=== PATIENT | male | born 1970 | race Caucasian/White ===

== ENCOUNTER 2018-03-09 15:28 | Inpatient (IN) | payer MEDICARE, MEDICAID ==
[~2018-03-09] VITALS: Ht 180.3 cm; Wt 106.0 kg
[~2018-03-09 15:28] MED LIST: ARIP10TA15 PO; ATOR20TA PO; BENZ0.5T38 PO; CETI-1 PO; DULO-31 PO; FOLI-43 PO; HYDR-3686 PO; INSU100I25 SQ; IPRA3AMP31 IH; IPRA4AER IH; METF-437 PO; MULT-785 PO; NALT50TA PO; NICO-687 TD; NOR5T PO; NOVLG SQ; OMEP-84 PO; PRAZ1CAP5 PO; PREG100C24 PO; PROP10TA10 PO; SITA100T15 PO; SUCR1ORA2 PO; TIZA4CAP PO; VAL5T PO; VALS40TA2 PO
[2018-03-09] MEDS ORDERED: ringers solution, lacted 1,000 ML IV ONE ×2 (15:40→16:15)
[2018-03-09] MEDS ORDERED: dextrose 50%-water 50ml dispensing syringe IV ONE (16:05)
[2018-03-09] MEDS ORDERED: Dextrose 10%-water IV solution 1,000 ML IV ONE (16:05)
[2018-03-09 16:06] LABS: BASOPHILS # (AUTO) 0.1 X10'3 (0-0.2); BASOPHILS % (AUTO) 0.6 % (0-1); EOSINOPHILS # (AUTO) 0.2 X10'3 (0-0.9); EOSINOPHILS % (AUTO) 1.3 % (0-6); LYMPHOCYTES # (AUTO) 1.7 X10'3 (1.1-4.8); LYMPHOCYTES % (AUTO) 13.8 % (21-51); MEAN CORPUSCULAR HEMOGLOBIN 32.3 PG (27.0-31.0); MEAN CORPUSCULAR VOLUME 94.8 FL (78-98); MEAN PLATELET VOLUME 7.4 FL (7.4-10.4); MONOCYTES # (AUTO) 0.6 X10'3 (0-0.9); MONOCYTES % (AUTO) 4.5 % (2-12); NEUTROPHILS # (AUTO) 9.8 X10'3 (1.8-7.7); NEUTROPHILS % (AUTO) 79.8 % (42-75); PLATELET COUNT 216 X10'3 (140-440); RED BLOOD COUNT 4.33 X10'6 (4.70-6.10); RED CELL DISTRIBUTION WIDTH 14.7 % (11.5-14.5); WHITE BLOOD COUNT 12.3 X10'3 (4.5-11.0)
[2018-03-09 16:18] LABS: ALANINE AMINOTRANSFERASE 54 U/L (12-78); ALBUMIN 2.7 G/DL (3.4-5.0); ALBUMIN/GLOBULIN RATIO 0.6 (1.1-1.5); ALKALINE PHOSPHATASE 116 IU/L (46-116); ANION GAP 17 (8-16); ASPARTATE AMINO TRANSFERASE 184 U/L (10-37); BILIRUBIN,TOTAL 0.3 MG/DL (0.1-1.0); BLOOD UREA NITROGEN 17 MG/DL (7-18); BUN/CREATININE RATIO 12.8 (5.4-32.0); CALCIUM 9.2 MG/DL (8.5-10.1); CHLORIDE 102 MMOL/L (99-107); CREATININE 1.33 MG/DL (0.60-1.10); GLUCOSE 61 MG/DL (70-104); SODIUM 141 MMOL/L (135-145); TOTAL PROTEIN 6.9 G/DL (6.4-8.2); eGFR 57 ML/MIN
[2018-03-09] MEDS ORDERED: normal saline 1000ML IV soln IV ONE (16:25)
[2018-03-09 16:28] LABS: ETHANOL 0.137 GM/DL (0.0-0.010); INR 1.1 INR; PARTIAL THROMBOPLASTIN TIME 31 SECONDS (22-32); PROTHROMBIN TIME 11.5 SECONDS (9.0-12.0)
[2018-03-09 16:32] LABS: TROPONIN I 0.81 NG/ML (0.0-0.05)
[2018-03-09] MEDS ORDERED: potassium Cl 40 mEq/NS 500ml IV ONE (16:35)
[2018-03-09 16:59] LABS: LACTIC SEPSIS 4.4 MMOL/L (0.4-2.0)
[2018-03-09 17:01] LABS: CREATINE KINASE 8657 U/L (39-308)
[2018-03-09] MEDS ORDERED: levoFLOXACIN-Levaquin 750MG/D5 150 ML IV ONE (17:05)
[2018-03-09] MEDS ORDERED: Potassium Cl 40 MEQ in NS 500 ML IV ONE (17:15)
[2018-03-09 17:49] LABS: CLARITY,URINE SLIGHTLY CLOUDY (Clear); COLOR,URINE YELLOW (Yellow); GLUCOSE, URINE >=1000 mg/dl (Neg); KETONES,URINE NEGATIVE (Neg); LEUKOCYTE ESTERASE ,URINE NEGATIVE (Neg); NITRITES, URINE NEGATIVE (Neg); OCCULT BLOOD,URINE LARGE (Neg); PROTEIN,URINE 100 mg/dl (Neg); UROBILINOGEN,URINE 0.2 E.U/dL (0.2-1.0)
[2018-03-09 17:50] LABS: UA COLLECTION TYPE FOLEY CATH
[2018-03-09 17:55] LABS: URINE AMPHETAMINE SCREEN NEGATIVE (Neg); URINE BARBITUATE SCREEN NEGATIVE (Neg); URINE BENZODIAZEPINES SCREEN POSITIVE (Neg); URINE CANNABINOID SCREEN POSITIVE (Neg); URINE COCAINE SCREEN NEGATIVE (Neg); URINE METHADONE SCREEN NEGATIVE (Neg); URINE OPIATE SCREEN POSITIVE (Neg); URINE PHENCYCLIDINE SCREEN NEGATIVE (Neg)
[2018-03-09] MEDS ORDERED: sodium phosphate inj. 30 MMOL in dextrose 5%-water 250 ML IV PRN (18:00)
[2018-03-09] MEDS ORDERED: sodium phosphate inj. 15 MMOL in dextrose 5%-water 150 ML IV PRN (18:00)
[2018-03-09] MEDS ORDERED: potassium phosphate inj 30 MMOL in normal saline 500ml IV soln 490 ML IV ONE (18:05)
[2018-03-09 18:16] LABS: AMORPHOUS URATES 2+; BACTERIA,URINE NONE SEEN /HPF (Neg); MUCUS STRANDS NONE SEEN /LPF (Neg); RBC,URINE NONE SEEN /HPF (0-2); RENAL CELLS, URINE FEW /HPF; SQUAMOUS EPITHELIAL CELL,UR NONE SEEN /LPF (FEW); TRANSITIONAL EPI CELLS,URINE FEW /HPF; WBC,URINE 0-4 /HPF (0-4)
[2018-03-09] MEDS ORDERED: dextrose 5%-1/2 normal saline 1,000 ML IV SCH (19:02)
[2018-03-09] MEDS ORDERED: HYDROcodone/acetaminophen 5mg/325mg tablet PO PRN (19:05)
[2018-03-09] MEDS ORDERED: magnesium hydroxide 30ml (MOM) UD suspension PO PRN (19:05)
[2018-03-09] MEDS ORDERED: ondansetron/PF 4mg/2ml inj IV PRN (19:05)
[2018-03-09] MEDS ORDERED: morphine 2 MG/ML inj. syringe IV PRN (19:05)
[2018-03-09] MEDS ORDERED: mag hydrox/Alum hydrox/simeth 30ml oral suspension PO PRN (19:05)
[2018-03-09] MEDS ORDERED: acetaminophen 325mg tablet PO PRN (19:05)
[2018-03-09] MEDS ORDERED: glucagon, human recombinant 1mg kit SUBCUT PRN (19:10)
[2018-03-09] MEDS ORDERED: dextrose ORAL solution 15 GM/59 ML bottle PO PRN ×2 (19:10)
[2018-03-09] MEDS ORDERED: dextrose 50%-water 50ml dispensing syringe IV PRN ×2 (19:10)
[2018-03-09] MEDS ORDERED: MESSAGE TO PHARMACY PO ONE (19:10)
[2018-03-09] MEDS ORDERED: ASPI-778 (19:11)
[2018-03-09] MEDS ORDERED: ZOLP10TA5 PO (19:11)
[2018-03-09] MEDS ORDERED: PER10325T PO (19:11)
[2018-03-09] MEDS ORDERED: FLUT1DIS4 INH (19:11)
[2018-03-09] MEDS ORDERED: enoxaparin 100mg/ml syringe SUBCUT ONE (19:15)
[2018-03-09] MEDS: insulin glargine (Lantus) pen - multi-dose SQ SCH (21:00)
[2018-03-09 22:00] VITALS: BP 139/88
[2018-03-09] MEDS: metoprolol tartrate 25mg tablet PO SCH (22:26)
[2018-03-09] MEDS: HYDROcodone/acetaminophen 10/325mg tab PO PRN (22:38)
[2018-03-09 22:47] LABS: HEMOGLOBIN A1C 9.3 % (4.5-6.2)
[2018-03-10 02:00] VITALS: BP 147/73
[2018-03-10] MEDS: HYDROcodone/acetaminophen 10/325mg tab PO PRN ×6 (02:44→22:19)
[2018-03-10 03:51] LABS: BASOPHILS # (AUTO) 0.1 X10'3 (0-0.2); BASOPHILS % (AUTO) 0.5 % (0-1); EOSINOPHILS # (AUTO) 0.1 X10'3 (0-0.9); EOSINOPHILS % (AUTO) 0.5 % (0-6); HEMATOCRIT 38.8 % (42.0-52.0); HEMOGLOBIN 13.1 g/dl (14.0-17.9); LYMPHOCYTES # (AUTO) 2.3 X10'3 (1.1-4.8); LYMPHOCYTES % (AUTO) 19.7 % (21-51); MEAN CORPUSCULAR HGB CONC 33.8 % (33.0-36.5); MEAN CORPUSCULAR VOLUME 94.6 FL (78-98); MEAN PLATELET VOLUME 7.7 FL (7.4-10.4); MONOCYTES # (AUTO) 0.6 X10'3 (0-0.9); MONOCYTES % (AUTO) 5.2 % (2-12); NEUTROPHILS # (AUTO) 8.6 X10'3 (1.8-7.7); NEUTROPHILS % (AUTO) 74.1 % (42-75); PLATELET COUNT 166 X10'3 (140-440); RED CELL DISTRIBUTION WIDTH 14.7 % (11.5-14.5); WHITE BLOOD COUNT 11.5 X10'3 (4.5-11.0)
[2018-03-10] MEDS: normal saline 1000ml 1,000 ML IV SCH ×3 (04:03→23:32)
[2018-03-10 04:05] LABS: ALBUMIN 2.5 G/DL (3.4-5.0); ANION GAP 11 (8-16); BLOOD UREA NITROGEN 16 MG/DL (7-18); BUN/CREATININE RATIO 11.1 (5.4-32.0); CALCIUM 8.1 MG/DL (8.5-10.1); CHLORIDE 103 MMOL/L (99-107); CHOL/HDL RATIO 2.4 (0.00-4.99); CHOLESTEROL 131 MG/DL (0-200); CREATININE 1.44 MG/DL (0.60-1.10); GLUCOSE 203 MG/DL (70-104); HDL CHOLESTEROL 55 MG/DL (35-60); LDL CHOLESTEROL 52 MG/DL (50-100); POTASSIUM 4.4 MMOL/L (3.5-5.1); SODIUM 139 MMOL/L (135-145); TOTAL CARBON DIOXIDE 25.3 MMOL/L (24-32); TRIGLYCERIDES 223 MG/DL (20-135); eGFR 52 ML/MIN
[2018-03-10 04:13] LABS: CREATINE KINASE 6037 U/L (39-308)
[2018-03-10 04:15] LABS: TROPONIN I 0.68 NG/ML (0.0-0.05)
[2018-03-10 06:00] VITALS: BP 144/79
[2018-03-10] MEDS: aspirin 81mg tablet.DR PO SCH (07:49)
[2018-03-10] MEDS: metoprolol tartrate 25mg tablet PO SCH ×2 (07:49→21:54)
[2018-03-10] MEDS ORDERED: enoxaparin 40mg/0.4ml syringe SUBCUT SCH (08:00)
[2018-03-10] MEDS ORDERED: thiamine inj. 100 MG in normal saline 100ml IV soln 100 ML IV ONE (09:15)
[2018-03-10] MEDS ORDERED: haloperidol lactate 5mg/ml inj IM PRN (09:15)
[2018-03-10] MEDS ORDERED: haloperidol 5mg tablet PO PRN (09:15)
[2018-03-10] MEDS ORDERED: LURA80TA3 PO (09:44)
[2018-03-10] MEDS ORDERED: MELO-102 PO (09:45)
[2018-03-10] MEDS ORDERED: CANA300T PO (09:46)
[2018-03-10] MEDS ORDERED: ALPR1TAB7 PO (09:47)
[2018-03-10] MEDS ORDERED: MORP-64 PO (09:48)
[2018-03-10] MEDS: pantoprazole 40 MG vial IV SCH (10:46)
[2018-03-10 11:00] VITALS: BP 152/85
[2018-03-10] MEDS: insulin Lispro (HumaLOG) vial - multi-dose SQ SCH ×2 (13:16→19:14)
[2018-03-10 15:00] VITALS: BP 139/74
[2018-03-10] MEDS ORDERED: DIAZ10TA4 PO (16:30)
[2018-03-10] MEDS ORDERED: INSU100V12 SQ (16:31)
[2018-03-10] MEDS ORDERED: INSU100V13 SQ (16:31)
[2018-03-10] MEDS ORDERED: NALT50TA PO (16:32)
[2018-03-10] MEDS ORDERED: non-formulary drug (Ipratropium/Albuterol Sulfate (Combivent Respimat Inhal Spray) 1 PUFFS IH SCH (17:00)
[2018-03-10] MEDS ORDERED: non-formulary drug (Omeprazole* (Prilosec*) 20 MG) PO SCH (17:00)
[2018-03-10] MEDS ORDERED: ipratropium/albuterol 3ml nebule IH PRN (17:00)
[2018-03-10] MEDS ORDERED: metoprolol tartrate 1mg/ml inj IV PRN (17:05)
[2018-03-10] MEDS ORDERED: regadenoson 0.4mg/5ml syringe IV PRN (17:05)
[2018-03-10] MEDS ORDERED: aminophylline 250mg/10ml inj. IV PRN (17:05)
[2018-03-10] MEDS ORDERED: nitroGLYCERIN 0.4mg SUBLingual tab SL PRN (17:05)
[2018-03-10] MEDS: levoFLOXACIN 500mg tablet PO SCH (17:47)
[2018-03-10] MEDS ORDERED: albuterol 2.5 MG/3 ML nebule NEB SCH (19:00)
[2018-03-10 19:10] VITALS: BP 152/92
[2018-03-10] MEDS: ipratropium/albuterol 3ml nebule IH SCH (20:00)
[2018-03-10] MEDS ORDERED: enoxaparin 100mg/ml syringe SUBCUT SCH (20:00)
[2018-03-10] MEDS ORDERED: non-formulary drug (Fluticasone/Salmeterol (Advair 250-50 Diskus) 1 PUFFS) INH SCH (20:00)
[2018-03-10] MEDS ORDERED: PREGABALIN 200 MG PO SCH (21:00)
[2018-03-10] MEDS ORDERED: non-formulary drug (Lurasidone HCl (Latuda) 1 TAB) PO SCH (21:00)
[2018-03-10] MEDS: propranolol 10mg tablet PO SCH (21:54)
[2018-03-10] MEDS: lurasidone 20mg tablet PO SCH (21:54)
[2018-03-10] MEDS: atorvastatin 20mg tablet PO SCH (21:54)
[2018-03-10] MEDS: insulin glargine (Lantus) pen - multi-dose SQ SCH (22:07)
[2018-03-10] MEDS: LORazepam 1 MG tablet PO PRN (22:14)
[2018-03-10] MEDS: pregabalin 25mg capsule PO SCH (22:14)
[2018-03-10 23:00] VITALS: BP 143/87
[2018-03-11] VITALS (12 sets, daily range): BP systolic 124–155; BP diastolic 64–97
[2018-03-11] MEDS: LORazepam 1 MG tablet PO PRN ×5 (02:52→23:35)
[2018-03-11] MEDS: HYDROcodone/acetaminophen 10/325mg tab PO PRN ×4 (02:52→22:08)
[2018-03-11] MEDS: BUDESONIDE 0.25 MG/2 ML AMPUL.NEB IH SCH ×3 (03:43→20:15)
[2018-03-11 05:01] LABS: BASOPHILS % (AUTO) 0.5 % (0-1); EOSINOPHILS # (AUTO) 0.2 X10'3 (0-0.9); EOSINOPHILS % (AUTO) 3.5 % (0-6); HEMATOCRIT 32.4 % (42.0-52.0); LYMPHOCYTES # (AUTO) 1.8 X10'3 (1.1-4.8); LYMPHOCYTES % (AUTO) 30.8 % (21-51); MEAN CORPUSCULAR HEMOGLOBIN 32.1 PG (27.0-31.0); MEAN CORPUSCULAR HGB CONC 34.1 % (33.0-36.5); MEAN CORPUSCULAR VOLUME 94.3 FL (78-98); MONOCYTES # (AUTO) 0.3 X10'3 (0-0.9); MONOCYTES % (AUTO) 5.5 % (2-12); NEUTROPHILS # (AUTO) 3.5 X10'3 (1.8-7.7); NEUTROPHILS % (AUTO) 59.7 % (42-75); PLATELET COUNT 116 X10'3 (140-440); RED BLOOD COUNT 3.44 X10'6 (4.70-6.10); RED CELL DISTRIBUTION WIDTH 14.6 % (11.5-14.5); WHITE BLOOD COUNT 5.9 X10'3 (4.5-11.0)
[2018-03-11 05:16] LABS: ALBUMIN 2.2 G/DL (3.4-5.0); ANION GAP 9 (8-16); BLOOD UREA NITROGEN 13 MG/DL (7-18); CALCIUM 7.7 MG/DL (8.5-10.1); CHLORIDE 106 MMOL/L (99-107); GLUCOSE 130 MG/DL (70-104); SODIUM 141 MMOL/L (135-145); TOTAL CARBON DIOXIDE 26.1 MMOL/L (24-32); eGFR 80 ML/MIN
[2018-03-11 05:17] LABS: CREATINE KINASE 2909 U/L (39-308)
[2018-03-11] MEDS: pantoprazole 40mg Tablet.DR PO SCH ×2 (07:00→17:00)
[2018-03-11] MEDS: folic acid 1mg tablet PO SCH ×2 (07:04)
[2018-03-11] MEDS: aspirin 81mg tablet.DR PO SCH (07:04)
[2018-03-11] MEDS: enoxaparin 40mg/0.4ml syringe SUBCUT SCH (07:05)
[2018-03-11] MEDS: thiamine 100mg tablet PO SCH (07:05)
[2018-03-11] MEDS: multivitamins, therapeutics tablet PO SCH ×2 (07:05)
[2018-03-11] MEDS: pregabalin 25mg capsule PO SCH ×3 (07:05→22:03)
[2018-03-11] MEDS: ALPRAZolam 0.5mg tablet PO SCH (07:06)
[2018-03-11] MEDS: ipratropium/albuterol 3ml nebule IH SCH ×4 (07:09→20:15)
[2018-03-11] MEDS: propranolol 10mg tablet PO SCH (07:54)
[2018-03-11] MEDS: pantoprazole 40 MG vial IV SCH (07:56)
[2018-03-11] MEDS ORDERED: non-formulary drug (Alprazolam 1 TAB) PO SCH (08:00)
[2018-03-11] MEDS: amLODIPine 5mg tablet PO SCH (08:01)
[2018-03-11] MEDS: metoprolol tartrate 25mg tablet PO SCH ×2 (08:02→19:29)
[2018-03-11] MEDS: insulin Lispro (HumaLOG) vial - multi-dose SQ SCH ×2 (08:08→12:58)
[2018-03-11] MEDS: normal saline 1000ml 1,000 ML IV SCH ×3 (10:00→19:43)
[2018-03-11] MEDS ORDERED: regadenoson 0.4mg/5ml syringe IV ONE (11:12)
[2018-03-11] MEDS: levoFLOXACIN 500mg tablet PO SCH (12:42)
[2018-03-11] MEDS: morphine 2 MG/ML inj. syringe IV PRN (19:35)
[2018-03-11] MEDS ORDERED: propranolol 40mg tablet PO SCH (20:00)
[2018-03-11] MEDS: insulin glargine (Lantus) pen - multi-dose SQ SCH (21:49)
[2018-03-11] MEDS: lurasidone 20mg tablet PO SCH (21:59)
[2018-03-11] MEDS: atorvastatin 20mg tablet PO SCH (22:04)
[2018-03-12] VITALS: BP 162/96
[2018-03-12] MEDS: HYDROcodone/acetaminophen 10/325mg tab PO PRN ×3 (05:38→19:31)
[2018-03-12 06:09] LABS: BASOPHILS % (AUTO) 0.3 % (0-1); EOSINOPHILS # (AUTO) 0.2 X10'3 (0-0.9); EOSINOPHILS % (AUTO) 2.8 % (0-6); HEMATOCRIT 35.2 % (42.0-52.0); HEMOGLOBIN 12.1 g/dl (14.0-17.9); LYMPHOCYTES # (AUTO) 1.8 X10'3 (1.1-4.8); LYMPHOCYTES % (AUTO) 31.2 % (21-51); MEAN CORPUSCULAR HEMOGLOBIN 32.7 PG (27.0-31.0); MEAN CORPUSCULAR HGB CONC 34.5 % (33.0-36.5); MEAN CORPUSCULAR VOLUME 94.9 FL (78-98); MEAN PLATELET VOLUME 7.5 FL (7.4-10.4); MONOCYTES # (AUTO) 0.4 X10'3 (0-0.9); MONOCYTES % (AUTO) 6.3 % (2-12); NEUTROPHILS # (AUTO) 3.5 X10'3 (1.8-7.7); NEUTROPHILS % (AUTO) 59.4 % (42-75); PLATELET COUNT 116 X10'3 (140-440); RED BLOOD COUNT 3.71 X10'6 (4.70-6.10); RED CELL DISTRIBUTION WIDTH 14.3 % (11.5-14.5); WHITE BLOOD COUNT 5.9 X10'3 (4.5-11.0)
[2018-03-12 06:41] LABS: ALBUMIN 2.5 G/DL (3.4-5.0); ANION GAP 9 (8-16); BLOOD UREA NITROGEN 13 MG/DL (7-18); BUN/CREATININE RATIO 12.7 (5.4-32.0); CALCIUM 8.2 MG/DL (8.5-10.1); CHLORIDE 101 MMOL/L (99-107); CREATININE 1.02 MG/DL (0.60-1.10); GLUCOSE 197 MG/DL (70-104); POTASSIUM 4.5 MMOL/L (3.5-5.1); SODIUM 136 MMOL/L (135-145); TOTAL CARBON DIOXIDE 26.3 MMOL/L (24-32); eGFR 78 ML/MIN
[2018-03-12 06:43] LABS: CREATINE KINASE 2714 U/L (39-308)
[2018-03-12] MEDS: ipratropium/albuterol 3ml nebule IH SCH ×4 (07:01→19:48)
[2018-03-12] MEDS: BUDESONIDE 0.25 MG/2 ML AMPUL.NEB IH SCH ×2 (07:02→19:48)
[2018-03-12] MEDS: pantoprazole 40mg Tablet.DR PO SCH ×2 (07:38→17:01)
[2018-03-12] MEDS: amLODIPine 5mg tablet PO SCH (07:39)
[2018-03-12] MEDS: folic acid 1mg tablet PO SCH ×2 (07:39→08:00)
[2018-03-12] MEDS: aspirin 81mg tablet.DR PO SCH (07:39)
[2018-03-12] MEDS: metoprolol tartrate 25mg tablet PO SCH ×2 (07:39→19:28)
[2018-03-12] MEDS: thiamine 100mg tablet PO SCH (07:39)
[2018-03-12] MEDS: lactobacillus rhamnosus 10,000 MMU CELLS/CAPSULE PO SCH ×2 (07:39→19:28)
[2018-03-12] MEDS: ALPRAZolam 0.5mg tablet PO SCH (07:39)
[2018-03-12 07:40] VITALS: BP 156/103
[2018-03-12] MEDS: multivitamins, therapeutics tablet PO SCH ×2 (07:40→08:00)
[2018-03-12] MEDS: enoxaparin 40mg/0.4ml syringe SUBCUT SCH (07:41)
[2018-03-12] MEDS: pantoprazole 40 MG vial IV SCH (08:00)
[2018-03-12] MEDS: insulin Lispro (HumaLOG) vial - multi-dose SQ SCH ×3 (08:42→18:47)
[2018-03-12] MEDS: morphine 2 MG/ML inj. syringe IV PRN ×3 (08:44→21:26)
[2018-03-12] MEDS: LORazepam 2 mg/ml vial IV PRN ×2 (08:45→17:01)
[2018-03-12] MEDS: pregabalin 75mg capsule PO SCH ×3 (09:46→21:24)
[2018-03-12] MEDS: pregabalin 25mg capsule PO SCH ×3 (09:47→21:24)
[2018-03-12] MEDS: levoFLOXACIN 500mg tablet PO SCH (11:07)
[2018-03-12] MEDS: normal saline 1000ml 1,000 ML IV SCH ×3 (11:25→23:26)
[2018-03-12 11:42] VITALS: BP 138/84
[2018-03-12 19:00] VITALS: BP 160/96
[2018-03-12] MEDS: LORazepam 1 MG tablet PO PRN ×2 (19:28→21:25)
[2018-03-12] MEDS: lurasidone 20mg tablet PO SCH (21:17)
[2018-03-12] MEDS: atorvastatin 20mg tablet PO SCH (21:25)
[2018-03-12] MEDS: insulin glargine (Lantus) pen - multi-dose SQ SCH (21:29)
[2018-03-13] VITALS: BP 165/91
[2018-03-13] MEDS: HYDROcodone/acetaminophen 10/325mg tab PO PRN ×4 (00:45→16:19)
[2018-03-13] MEDS: LORazepam 1 MG tablet PO PRN ×3 (00:45→19:17)
[2018-03-13] MEDS: morphine 2 MG/ML inj. syringe IV PRN ×4 (02:45→19:17)
[2018-03-13] MEDS: normal saline 1000ml 1,000 ML IV SCH ×3 (05:02→23:59)
[2018-03-13 05:51] LABS: BASOPHILS % (AUTO) 0.2 % (0-1); EOSINOPHILS # (AUTO) 0.2 X10'3 (0-0.9); HEMATOCRIT 35.9 % (42.0-52.0); HEMOGLOBIN 12.4 g/dl (14.0-17.9); LYMPHOCYTES # (AUTO) 1.7 X10'3 (1.1-4.8); LYMPHOCYTES % (AUTO) 30.1 % (21-51); MEAN CORPUSCULAR HEMOGLOBIN 32.4 PG (27.0-31.0); MEAN CORPUSCULAR HGB CONC 34.6 % (33.0-36.5); MEAN CORPUSCULAR VOLUME 93.7 FL (78-98); MEAN PLATELET VOLUME 7.7 FL (7.4-10.4); MONOCYTES # (AUTO) 0.4 X10'3 (0-0.9); MONOCYTES % (AUTO) 6.5 % (2-12); NEUTROPHILS # (AUTO) 3.4 X10'3 (1.8-7.7); NEUTROPHILS % (AUTO) 60.2 % (42-75); PLATELET COUNT 114 X10'3 (140-440); RED BLOOD COUNT 3.84 X10'6 (4.70-6.10); RED CELL DISTRIBUTION WIDTH 14.4 % (11.5-14.5); WHITE BLOOD COUNT 5.6 X10'3 (4.5-11.0)
[2018-03-13 06:43] LABS: ALBUMIN 2.7 G/DL (3.4-5.0); ANION GAP 13 (8-16); BLOOD UREA NITROGEN 10 MG/DL (7-18); BUN/CREATININE RATIO 9.5 (5.4-32.0); CALCIUM 8.4 MG/DL (8.5-10.1); CHLORIDE 102 MMOL/L (99-107); CREATININE 1.05 MG/DL (0.60-1.10); GLUCOSE 203 MG/DL (70-104); POTASSIUM 4.4 MMOL/L (3.5-5.1); SODIUM 140 MMOL/L (135-145); TOTAL CARBON DIOXIDE 25.1 MMOL/L (24-32); eGFR 75 ML/MIN
[2018-03-13 06:51] LABS: CREATINE KINASE 2530 U/L (39-308)
[2018-03-13] MEDS: BUDESONIDE 0.25 MG/2 ML AMPUL.NEB IH SCH ×2 (07:33→19:34)
[2018-03-13] MEDS: ipratropium/albuterol 3ml nebule IH SCH ×4 (07:33→19:35)
[2018-03-13] MEDS: metoprolol tartrate 25mg tablet PO SCH ×2 (07:39→20:47)
[2018-03-13] MEDS: lactobacillus rhamnosus 10,000 MMU CELLS/CAPSULE PO SCH ×2 (07:39→20:47)
[2018-03-13] MEDS: ALPRAZolam 0.5mg tablet PO SCH (07:39)
[2018-03-13] MEDS: amLODIPine 5mg tablet PO SCH (07:39)
[2018-03-13] MEDS: folic acid 1mg tablet PO SCH ×2 (07:40→07:44)
[2018-03-13] MEDS: pregabalin 25mg capsule PO SCH ×3 (07:40→20:47)
[2018-03-13] MEDS: pregabalin 75mg capsule PO SCH ×3 (07:41→20:47)
[2018-03-13] MEDS: thiamine 100mg tablet PO SCH (07:41)
[2018-03-13] MEDS: pantoprazole 40mg Tablet.DR PO SCH ×2 (07:41→16:19)
[2018-03-13] MEDS: multivitamins, therapeutics tablet PO SCH ×2 (07:42→07:45)
[2018-03-13] MEDS: enoxaparin 40mg/0.4ml syringe SUBCUT SCH (07:42)
[2018-03-13] MEDS: aspirin 81mg tablet.DR PO SCH (07:42)
[2018-03-13 08:00] VITALS: BP 157/108
[2018-03-13] MEDS: insulin Lispro (HumaLOG) vial - multi-dose SQ SCH ×3 (08:02→19:03)
[2018-03-13] MEDS: levoFLOXACIN 500mg tablet PO SCH (10:19)
[2018-03-13 11:00] VITALS: BP 126/93
[2018-03-13] MEDS ORDERED: LORazepam 1 MG tablet PO ONE (13:15)
[2018-03-13 19:00] VITALS: BP 142/82
[2018-03-13] MEDS: atorvastatin 20mg tablet PO SCH (20:47)
[2018-03-13] MEDS: lurasidone 20mg tablet PO SCH (20:48)
[2018-03-13] MEDS: insulin glargine (Lantus) pen - multi-dose SQ SCH (21:02)
[2018-03-14] VITALS: BP 144/76
[2018-03-14] MEDS: LORazepam 1 MG tablet PO PRN ×2 (00:06→05:44)
[2018-03-14] MEDS: morphine 2 MG/ML inj. syringe IV PRN ×2 (00:07→05:45)
[2018-03-14] MEDS: HYDROcodone/acetaminophen 10/325mg tab PO PRN ×2 (03:33→08:22)
[2018-03-14 06:04] LABS: BASOPHILS % (AUTO) 0.1 % (0-1); EOSINOPHILS # (AUTO) 0.2 X10'3 (0-0.9); EOSINOPHILS % (AUTO) 2.6 % (0-6); HEMATOCRIT 36.5 % (42.0-52.0); HEMOGLOBIN 12.4 g/dl (14.0-17.9); LYMPHOCYTES % (AUTO) 26.1 % (21-51); MEAN CORPUSCULAR HEMOGLOBIN 32.1 PG (27.0-31.0); MEAN CORPUSCULAR HGB CONC 33.9 % (33.0-36.5); MEAN CORPUSCULAR VOLUME 94.7 FL (78-98); MEAN PLATELET VOLUME 7.5 FL (7.4-10.4); MONOCYTES # (AUTO) 0.7 X10'3 (0-0.9); NEUTROPHILS # (AUTO) 4.8 X10'3 (1.8-7.7); NEUTROPHILS % (AUTO) 62.2 % (42-75); PLATELET COUNT 125 X10'3 (140-440); RED BLOOD COUNT 3.86 X10'6 (4.70-6.10); RED CELL DISTRIBUTION WIDTH 14.9 % (11.5-14.5); WHITE BLOOD COUNT 7.7 X10'3 (4.5-11.0)
[2018-03-14 06:29] LABS: ALBUMIN 2.8 G/DL (3.4-5.0); ANION GAP 12 (8-16); BLOOD UREA NITROGEN 10 MG/DL (7-18); CALCIUM 8.6 MG/DL (8.5-10.1); CHLORIDE 102 MMOL/L (99-107); CREATININE 1.11 MG/DL (0.60-1.10); GLUCOSE 212 MG/DL (70-104); POTASSIUM 4.5 MMOL/L (3.5-5.1); SODIUM 139 MMOL/L (135-145); TOTAL CARBON DIOXIDE 25.4 MMOL/L (24-32); eGFR 71 ML/MIN
[2018-03-14 06:32] LABS: CREATINE KINASE 2117 U/L (39-308)
[2018-03-14 07:04] VITALS: BP 168/91
[2018-03-14] MEDS: BUDESONIDE 0.25 MG/2 ML AMPUL.NEB IH SCH (07:13)
[2018-03-14] MEDS: ipratropium/albuterol 3ml nebule IH SCH ×2 (07:13→11:06)
[2018-03-14] MEDS: folic acid 1mg tablet PO SCH ×2 (08:00→08:12)
[2018-03-14] MEDS: multivitamins, therapeutics tablet PO SCH ×2 (08:00→08:12)
[2018-03-14] MEDS: pregabalin 25mg capsule PO SCH (08:11)
[2018-03-14] MEDS: pantoprazole 40mg Tablet.DR PO SCH (08:12)
[2018-03-14] MEDS: pregabalin 75mg capsule PO SCH (08:12)
[2018-03-14] MEDS: lactobacillus rhamnosus 10,000 MMU CELLS/CAPSULE PO SCH (08:12)
[2018-03-14] MEDS: thiamine 100mg tablet PO SCH (08:12)
[2018-03-14] MEDS: ALPRAZolam 0.5mg tablet PO SCH (08:12)
[2018-03-14] MEDS: metoprolol tartrate 25mg tablet PO SCH (08:12)
[2018-03-14] MEDS: enoxaparin 40mg/0.4ml syringe SUBCUT SCH (08:13)
[2018-03-14] MEDS: aspirin 81mg tablet.DR PO SCH (08:13)
[2018-03-14] MEDS: amLODIPine 5mg tablet PO SCH (08:13)
[2018-03-14] MEDS: normal saline 1000ml 1,000 ML IV SCH (08:22)
[2018-03-14] MEDS: insulin Lispro (HumaLOG) vial - multi-dose SQ SCH (08:26)
[2018-03-14] MEDS: levoFLOXACIN 500mg tablet PO SCH (11:41)
[2018-03-14 11:45] VITALS: BP 159/83
== END 2018-03-14 12:25 | disposition left against medical advice (07) | DRG 871 ==
LOC: ER 15:28 → ED HOLD 19:02 → PCU 3S 21:03 → SUR 3N 03-11 21:10
PROVIDERS: ADMIT Internal Medicine; ATTEND Internal Medicine
PROC: 05HM33Z Insertion of Infusion Device into Right Internal Jugular Vein, Percutaneous Approach (ICD-10-PCS; 2018-03-09)
PROC: 4A02XM4 Measurement of Cardiac Total Activity, External Approach (ICD-10-PCS; principal; 2018-03-11)
PROC: 3E033HZ Introduction of Radioactive Substance into Peripheral Vein, Percutaneous Approach (ICD-10-PCS; 2018-03-11)
DX: A41.9 Sepsis, unspecified organism (principal); J18.1 Lobar pneumonia, unspecified organism; M62.82 Rhabdomyolysis; J44.0 Chronic obstructive pulmonary disease with (acute) lower respiratory infection; N17.9 Acute kidney failure, unspecified; I24.8 Other forms of acute ischemic heart disease; G31.2 Degeneration of nervous system due to alcohol; E87.6 Hypokalemia; E11.649 Type 2 diabetes mellitus with hypoglycemia without coma; E83.39 Other disorders of phosphorus metabolism; E11.42 Type 2 diabetes mellitus with diabetic polyneuropathy; E78.00 Pure hypercholesterolemia, unspecified; E78.5 Hyperlipidemia, unspecified; G43.909 Migraine, unspecified, not intractable, without status migrainosus; G89.29 Other chronic pain; M54.9 Dorsalgia, unspecified; I95.9 Hypotension, unspecified; F10.229 Alcohol dependence with intoxication, unspecified; Z53.21 Procedure and treatment not carried out due to patient leaving prior to being seen by health care provider; F17.210 Nicotine dependence, cigarettes, uncomplicated; F31.9 Bipolar disorder, unspecified; F43.10 Post-traumatic stress disorder, unspecified; G47.30 Sleep apnea, unspecified; I10 Essential (primary) hypertension; K21.9 Gastro-esophageal reflux disease without esophagitis; Z91.19 Patient's noncompliance with other medical treatment and regimen; Z90.49 Acquired absence of other specified parts of digestive tract; Z91.013 Allergy to seafood; Z79.899 Other long term (current) drug therapy; Z87.442 Personal history of urinary calculi; Z82.49 Family history of ischemic heart disease and other diseases of the circulatory system; Z83.3 Family history of diabetes mellitus; Z71.41 Alcohol abuse counseling and surveillance of alcoholic; Z71.6 Tobacco abuse counseling
CPT/HCPCS: 36415; 70450; 71045; 78452; 80048; 80053; 80061; 80305; 80320; 81001; 82140; 82550; 82948; 83036; 83605; 83735; 83880; 84100; 84145; 84484; 85025; 85610; 85730; 87040; 87070; 93005; 93017; 94640; 94667; 94668; 94760; 96361; 96374; 99285; A9500; C9113; G0378; J1650; J1815; J1956; J2060; J2270; J3411; J3480; J7030; J7120

== ENCOUNTER 2018-08-31 18:38 | Inpatient (IN) | payer MEDICARE, MEDICAID ==
[~2018-08-31] VITALS: Ht 180.3 cm; Wt 108.2 kg
[~2018-08-31 18:38] MED LIST changes: +ALPR1TAB7 PO; -ARIP10TA15 PO; +ASPI-778; -BENZ0.5T38 PO; +CANA300T PO; +DIAZ10TA4 PO; -DULO-31 PO; +FLUT1DIS4 INH; -HYDR-3686 PO; -INSU100I25 SQ; +INSU100V12 SQ; +INSU100V13 SQ; +LURA80TA3 PO; +MELO-102 PO; +MORP-64 PO; -NICO-687 TD; -NOVLG SQ; +PER10325T PO; -PRAZ1CAP5 PO; -SUCR1ORA2 PO; -VAL5T PO; -VALS40TA2 PO; +ZOLP10TA5 PO
[2018-08-31] MEDS ORDERED: normal saline 1000ML IV soln IVB ONE ×4 (20:20→21:50)
[2018-08-31] MEDS ORDERED: ondansetron/PF 4mg/2ml inj IV ONE (20:20)
[2018-08-31 20:49] LABS: BASOPHILS % (AUTO) 0.4 % (0-1); EOSINOPHILS # (AUTO) 0.1 X10'3 (0-0.9); EOSINOPHILS % (AUTO) 0.8 % (0-6); HEMATOCRIT 45.8 % (42.0-52.0); HEMOGLOBIN 15.7 g/dl (14.0-17.9); LYMPHOCYTES # (AUTO) 2.6 X10'3 (1.1-4.8); LYMPHOCYTES % (AUTO) 24.6 % (21-51); MEAN CORPUSCULAR HEMOGLOBIN 32.2 PG (27.0-31.0); MEAN CORPUSCULAR HGB CONC 34.3 g/dL (33.0-36.5); MEAN CORPUSCULAR VOLUME 93.9 FL (78-98); MONOCYTES # (AUTO) 0.5 X10'3 (0-0.9); NEUTROPHILS # (AUTO) 7.3 X10'3 (1.8-7.7); NEUTROPHILS % (AUTO) 69.2 % (42-75); PLATELET COUNT 160 X10'3 (140-440); RED BLOOD COUNT 4.87 X10'6 (4.70-6.10); WHITE BLOOD COUNT 10.6 X10'3 (4.5-11.0)
[2018-08-31 20:50] LABS: ALANINE AMINOTRANSFERASE 35 U/L (12-78); ALBUMIN 3.5 G/DL (3.4-5.0); ALKALINE PHOSPHATASE 99 IU/L (46-116); ANION GAP 26 (8-16); ASPARTATE AMINO TRANSFERASE 61 U/L (10-37); BILIRUBIN,TOTAL 0.3 MG/DL (0.1-1.0); BLOOD UREA NITROGEN 21 MG/DL (7-18); BUN/CREATININE RATIO 11.9 (5.4-32.0); CALCIUM 8.1 MG/DL (8.5-10.1); CHLORIDE 96 MMOL/L (99-107); CREATININE 1.76 MG/DL (0.60-1.10); GLUCOSE 299 MG/DL (70-104); SODIUM 137 MMOL/L (135-145); eGFR 41 ML/MIN
[2018-08-31] MEDS ORDERED: thiamine 100mg tablet PO ONE (21:50)
[2018-08-31] MEDS ORDERED: folic acid 1mg tablet PO ONE (21:50)
[2018-08-31 22:05] LABS: LIPASE 173 U/L (73-393)
[2018-08-31 23:24] LABS: ALANINE AMINOTRANSFERASE 32 U/L (12-78); ALBUMIN 3.3 G/DL (3.4-5.0); ALKALINE PHOSPHATASE 95 IU/L (46-116); ANION GAP 26 (8-16); ASPARTATE AMINO TRANSFERASE 52 U/L (10-37); BILIRUBIN,TOTAL 0.2 MG/DL (0.1-1.0); BLOOD UREA NITROGEN 21 MG/DL (7-18); BUN/CREATININE RATIO 12.7 (5.4-32.0); CALCIUM 7.3 MG/DL (8.5-10.1); CHLORIDE 98 MMOL/L (99-107); CREATININE 1.66 MG/DL (0.60-1.10); ETHANOL 0.271 GM/DL (0.0-0.010); GLUCOSE 296 MG/DL (70-104); POTASSIUM 4.1 MMOL/L (3.5-5.1); SODIUM 139 MMOL/L (135-145); TOTAL PROTEIN 6.6 G/DL (6.4-8.2); eGFR 44 ML/MIN
--- NOTE | 2018-08-31 23:31 | NUR ---
C02 is 15, reported to [facility], [place]
[2018-08-31 23:50] LABS: URINE AMPHETAMINE SCREEN NEGATIVE (Neg); URINE BARBITUATE SCREEN NEGATIVE (Neg); URINE BENZODIAZEPINES SCREEN POSITIVE (Neg); URINE CANNABINOID SCREEN POSITIVE (Neg); URINE COCAINE SCREEN NEGATIVE (Neg); URINE METHADONE SCREEN NEGATIVE (Neg); URINE OPIATE SCREEN POSITIVE (Neg); URINE PHENCYCLIDINE SCREEN NEGATIVE (Neg)
[2018-09-01] MEDS ORDERED: LORazepam 2 mg/ml vial IV ONE
--- NOTE | 2018-09-01 00:09 | NUR ---
BP 93/60 INFORMED ALICIA OSORIO
--- NOTE | 2018-09-01 00:21 | NUR ---
States he is depressed, let himself go past few days. Not taken insulin past few days. Says he is bipolar, taking that medicine. Drinks 1 Liter of Whiskey a day "[place] islander whiskey" only drank 1/2 of this amount today r/t not feeling well. States in a lot of pain, chronic back pain.
[2018-09-01] MEDS ORDERED: LOSA25TA96 PO (00:29)
[2018-09-01] MEDS ORDERED: DAPA10TA PO (00:29)
[2018-09-01 00:50] LABS: ABG BASE EXCESS -15.8 mmol/L (-2.0-3.0); ABG HCO3 10.6 mmol/L (22.0-26.0); ABG PCO2 (T) 27.3 mmHg (35.0-48.0); ABG PH (T) 7.207 (7.350-7.450); ALLEN'S TEST Positive; FCOHb 0.8 % (0.5-1.5); FMetHb 0.2 % (0.3-1.12); FO2Hb 90.1 % (94-100); PATIENT TEMPERATURE 36.8; RESPIRATORY RATE (OBSERVED) 18 b/min
--- NOTE | 2018-09-01 00:50 | NUR ---
Pt very comfortable. Covered him up with several warm blankets and turned off the lights and he immediately fell asleep.
[2018-09-01 01:00] LABS: CLARITY,URINE SLIGHTLY CLOUDY (Clear); COLOR,URINE YELLOW (Yellow); GLUCOSE, URINE >=1000 mg/dl (Neg); KETONES,URINE TRACE mg/dl (Neg); LEUKOCYTE ESTERASE ,URINE NEGATIVE (Neg); NITRITES, URINE NEGATIVE (Neg); OCCULT BLOOD,URINE SMALL (Neg); PROTEIN,URINE 100 mg/dl (Neg); UROBILINOGEN,URINE 0.2 E.U/dL (0.2-1.0)
[2018-09-01 01:01] LABS: UA COLLECTION TYPE CLN CATCH MIDSTREAM
[2018-09-01] MEDS ORDERED: dextrose 50%-water 50ml dispensing syringe IV PRN ×2 (01:05)
[2018-09-01] MEDS ORDERED: dextrose ORAL solution 15 GM/59 ML bottle PO PRN ×2 (01:05)
[2018-09-01] MEDS ORDERED: magnesium hydroxide 30ml (MOM) UD suspension PO PRN (01:05)
[2018-09-01] MEDS ORDERED: acetaminophen 325mg tablet PO PRN ×2 (01:05)
[2018-09-01] MEDS ORDERED: haloperidol lactate 5mg/ml inj IM PRN (01:05)
[2018-09-01] MEDS ORDERED: MESSAGE TO PHARMACY PO ONE (01:05)
[2018-09-01] MEDS ORDERED: glucagon, human recombinant 1mg kit SUBCUT PRN (01:05)
[2018-09-01] MEDS ORDERED: haloperidol 5mg tablet PO PRN (01:05)
[2018-09-01] MEDS ORDERED: mag hydrox/Alum hydrox/simeth 30ml oral suspension PO PRN (01:05)
[2018-09-01 01:09] LABS: HYALINE CASTS 0-3 /LPF (NEGATIVE)
[2018-09-01 01:11] LABS: MUCUS STRANDS MODERATE /LPF (Neg); SQUAMOUS EPITHELIAL CELL,UR MODERATE /LPF (FEW)
[2018-09-01 01:12] LABS: WBC CASTS 0-3 /LPF (NEGATIVE)
[2018-09-01 01:13] LABS: BACTERIA,URINE FEW /HPF (Neg); RBC,URINE 0-2 /HPF (0-2); WBC,URINE 0-4 /HPF (0-4)
[2018-09-01] MEDS: normal saline 1000ml 1,000 ML IV SCH ×3 (01:17→21:03)
[2018-09-01] MEDS ORDERED: ipratropium/albuterol 3ml nebule IH PRN (01:25)
[2018-09-01] MEDS ORDERED: tizanidine 4mg tablet PO PRN (01:25)
[2018-09-01 01:31] LABS: HEMOGLOBIN A1C 10.5 % (4.5-6.2)
[2018-09-01] MEDS: insulin Lispro (HumaLOG) vial - multi-dose SQ SCH ×2 (01:45→14:51)
--- NOTE | 2018-09-01 01:49 | NUR ---
Gave him his insulin, he awoke and visited a little bit.
[2018-09-01] MEDS ORDERED: cyclobenzaprine 10mg tablet PO PRN (01:50)
--- NOTE | 2018-09-01 03:22 | NUR ---
pt given water per request.
--- NOTE | 2018-09-01 03:30 | NUR ---
faxed a letter back to pharmacy, pharmacy asked if pt could bring in own supply of meloxicam, and the patient states, no, he has no way of getting it here.
--- NOTE | 2018-09-01 04:17 | NUR ---
pt awake, hung 1 L NS bolus. Pt states he is anxious. Asked for more water.
[2018-09-01] MEDS: LORazepam 2 mg/ml vial IV PRN ×6 (04:20→21:35)
[2018-09-01] MEDS ORDERED: normal saline 1000ml 1,000 ML IVB ONE (04:20)
--- NOTE | 2018-09-01 04:25 | NUR ---
he is sitting up wretching, vomited 100 mls. He started coughing first off, has thick mucous in the vomit bag as well.
[2018-09-01] MEDS: ondansetron/PF 4mg/2ml inj IV PRN ×2 (04:27→10:32)
[2018-09-01] MEDS: ipratropium/albuterol 3ml nebule IH SCH ×4 (07:37→20:06)
[2018-09-01] MEDS: linagliptin 5mg tablet PO SCH (08:00)
[2018-09-01] MEDS: pregabalin 25mg capsule PO SCH ×3 (08:00→20:54)
[2018-09-01] MEDS: CANAGLIFLOZIN 300 MG PO SCH (08:00)
[2018-09-01] MEDS ORDERED: Meloxicam 15MG TAB PO SCH (08:00)
[2018-09-01] MEDS: DAPAGLIFLOZIN PROPANEDIOL 10 MG PO SCH (08:00)
[2018-09-01] MEDS: folic acid 1mg tablet PO SCH ×2 (08:00→11:14)
[2018-09-01] MEDS ORDERED: non-formulary drug (Fluticasone/Salmeterol (Advair 250-50 Diskus) 1 PUFFS) INH SCH (08:00)
[2018-09-01] MEDS: BUDESONIDE 0.25 MG/2 ML AMPUL.NEB IH SCH ×2 (09:00→20:06)
[2018-09-01 09:18] LABS: OCCULT BLOOD STOOL NEGATIVE (Neg)
[2018-09-01] MEDS: pantoprazole 40mg Tablet.DR PO SCH (11:13)
[2018-09-01] MEDS: losartan 25mg tablet PO SCH (11:13)
[2018-09-01] MEDS: propranolol 10mg tablet PO SCH ×2 (11:13→20:55)
[2018-09-01] MEDS: amLODIPine 5mg tablet PO SCH (11:14)
[2018-09-01] MEDS: multivitamins, therapeutics tablet PO SCH (11:14)
[2018-09-01] MEDS: thiamine 100mg tablet PO SCH (11:15)
[2018-09-01] MEDS: enoxaparin 40mg/0.4ml syringe SUBCUT SCH (11:16)
--- NOTE | 2018-09-01 14:51 | NUR ---
Patient in room . I have received report from CARLITA Galvez and had the opportunity to ask questions and assume patient care. Patient will be coming from the ED to room 3018.
[2018-09-01 15:00] VITALS: BP 144/101
--- NOTE | 2018-09-01 15:00 | NUR ---
Patient to room 3018 B. Patient in no apparent distress on room air. Call light and items of frequent use in reach of patient.
--- NOTE | 2018-09-01 18:32 | NUR ---
Patient in room PCU 3018. I have received report from Riya and had the opportunity to ask questions and assume patient care.
--- NOTE | 2018-09-01 18:33 | NUR ---
Problems reprioritized. Patient report given, questions answered & plan of care reviewed with CARLITA Mendoza. Patient resting comfortably at this time. Call light and items of frequent use in reach of patient.
[2018-09-01 19:00] VITALS: BP 151/94
--- NOTE | 2018-09-01 20:28 | NUR ---
Kelly, RN- [id number]- Pt [facility] room 3018B, has positive Aerobic blood cultures, gram + cocci clusters, 16.60 hours to detection.
[2018-09-01] MEDS: atorvastatin 20mg tablet PO SCH (20:54)
[2018-09-01] MEDS: lurasidone 20mg tablet PO SCH (20:55)
[2018-09-01] MEDS: insulin glargine (Lantus) pen - multi-dose SQ SCH ×2 (21:00→21:03)
[2018-09-01] MEDS ORDERED: cetirizine 10mg tablet PO SCH (21:00)
[2018-09-01] MEDS: CefTRIAXone/D5W-Rocephin 1gm 50 ML IV SCH (21:35)
[2018-09-01 23:00] VITALS: BP 157/96
[2018-09-02] MEDS: insulin Lispro (HumaLOG) vial - multi-dose SQ SCH ×3 (01:05→18:42)
[2018-09-02] MEDS: LORazepam 2 mg/ml vial IV PRN ×3 (01:53→08:24)
[2018-09-02 03:00] VITALS: BP 111/59
[2018-09-02 06:35] LABS: BASOPHILS % (AUTO) 0.4 % (0-1); EOSINOPHILS # (AUTO) 0.2 X10'3 (0-0.9); EOSINOPHILS % (AUTO) 2.4 % (0-6); HEMATOCRIT 33.6 % (42.0-52.0); HEMOGLOBIN 11.6 g/dl (14.0-17.9); LYMPHOCYTES # (AUTO) 1.5 X10'3 (1.1-4.8); LYMPHOCYTES % (AUTO) 23.4 % (21-51); MEAN CORPUSCULAR HGB CONC 34.6 g/dL (33.0-36.5); MEAN CORPUSCULAR VOLUME 92.5 FL (78-98); MEAN PLATELET VOLUME 7.3 FL (7.4-10.4); MONOCYTES # (AUTO) 0.3 X10'3 (0-0.9); MONOCYTES % (AUTO) 3.9 % (2-12); NEUTROPHILS # (AUTO) 4.6 X10'3 (1.8-7.7); NEUTROPHILS % (AUTO) 69.9 % (42-75); PLATELET COUNT 74 X10'3 (140-440); RED BLOOD COUNT 3.63 X10'6 (4.70-6.10); RED CELL DISTRIBUTION WIDTH 14.4 % (11.5-14.5); WHITE BLOOD COUNT 6.5 X10'3 (4.5-11.0)
[2018-09-02 06:42] LABS: ALBUMIN 2.8 G/DL (3.4-5.0); ANION GAP 12 (8-16); BLOOD UREA NITROGEN 14 MG/DL (7-18); BUN/CREATININE RATIO 11.9 (5.4-32.0); CALCIUM 7.7 MG/DL (8.5-10.1); CHLORIDE 100 MMOL/L (99-107); CREATININE 1.18 MG/DL (0.60-1.10); GLUCOSE 262 MG/DL (70-104); POTASSIUM 3.5 MMOL/L (3.5-5.1); SODIUM 134 MMOL/L (135-145); eGFR 66 ML/MIN
[2018-09-02 07:00] VITALS: BP 134/85
[2018-09-02] MEDS: BUDESONIDE 0.25 MG/2 ML AMPUL.NEB IH SCH ×2 (07:21→20:41)
[2018-09-02] MEDS: ipratropium/albuterol 3ml nebule IH SCH ×3 (07:21→20:40)
[2018-09-02] MEDS: CefTRIAXone/D5W-Rocephin 1gm 50 ML IV SCH (07:27)
[2018-09-02] MEDS: pantoprazole 40mg Tablet.DR PO SCH (07:27)
[2018-09-02] MEDS: multivitamins, therapeutics tablet PO SCH (07:28)
[2018-09-02] MEDS: amLODIPine 5mg tablet PO SCH (07:28)
[2018-09-02] MEDS: folic acid 1mg tablet PO SCH ×2 (07:28→07:47)
[2018-09-02] MEDS: pregabalin 25mg capsule PO SCH ×3 (07:28→20:25)
[2018-09-02] MEDS: thiamine 100mg tablet PO SCH (07:28)
[2018-09-02] MEDS: losartan 25mg tablet PO SCH (07:29)
[2018-09-02] MEDS: propranolol 10mg tablet PO SCH ×2 (07:29→20:23)
[2018-09-02] MEDS: linagliptin 5mg tablet PO SCH (07:29)
[2018-09-02] MEDS: enoxaparin 40mg/0.4ml syringe SUBCUT SCH (08:00)
[2018-09-02] MEDS: DAPAGLIFLOZIN PROPANEDIOL 10 MG PO SCH (08:00)
[2018-09-02] MEDS: CANAGLIFLOZIN 300 MG PO SCH (08:00)
[2018-09-02] MEDS: CefTRIAXone 2gm/D5W 50ml 50 ML IV SCH (08:00)
[2018-09-02] MEDS: normal saline 1000ml 1,000 ML IV SCH ×2 (08:30→17:03)
--- NOTE | 2018-09-02 08:54 | NUR ---
PAGER ID: [phone] MESSAGE: [facility] 3018B, Arjun Blankenship. pt requesting nicotene patch and percocet for chronic pain. asiya [phone]
[2018-09-02] MEDS ORDERED: oxyCODONE/APAP 10/325mg tablet PO PRN (09:00)
[2018-09-02] MEDS: nicotine 21mg patch - 24 hr TD SCH (09:36)
[2018-09-02] MEDS ORDERED: CefTRIAXone/D5W-Rocephin 1gm 50 ML IV SCH (10:00)
[2018-09-02] MEDS: LORazepam 1 MG tablet PO PRN ×4 (10:41→20:28)
[2018-09-02 11:00] VITALS: BP 121/86
--- NOTE | 2018-09-02 13:59 | NUR ---
PAGER ID: [phone] MESSAGE: Room 3018B Krzysztof. pt requesting Percocet q6 hours. [phone]
[2018-09-02 15:00] VITALS: BP 134/88
[2018-09-02] MEDS: oxyCODONE/APAP 10/325mg tablet PO PRN ×2 (16:14→22:57)
--- NOTE | 2018-09-02 18:23 | NUR ---
Patient in room PCU 3018. I have received report from Nila ZAZUETA and had the opportunity to ask questions and assume patient care.
--- NOTE | 2018-09-02 18:38 | NUR ---
DM consult: Pt with A1c 10.5 seen at bedside. Pt states he used to see an silver designer however recently changed providers and now sees a PCP q 3 months for DM management and takes his insulin per rx. Pt states he only checks his BG levels when he is having a low blood sugar because he only wants his MD to see that he's having lower levels rather than elevated levels. Discussed the importance of checking his BG more frequently for his benefit as well as provided his MD with the information needed to accurately prescribe insulin dosage. Pt states he will skip meals sometimes in hopes of losing weight, discussed the importance of balanced PO intake and DM management for weigh loss. Pt with no questions at this time. Written DM ed with referral to outpatient DM class and RD contact information provided. Pt admit with acute alcohol intoxication and anion gap metabolic acidosis. Pt currently on CHO controlled diet with documented PO intake 100% meeting nutrient needs. Pt states he is still hungry after meals and agreeable to double protein TID and yogurt TID, d/w dietary. Pt denies any food allergies, difficulty chewing/swallowing, or constipation/diarrhea. LBM 09/01. Will continue to follow. Recommendations: 1) Continue with CHO controlled diet 2) Double protein TID; yogurt TID 3) Continue Thiamine, Folic acid, MVI given hx Etoh abuse 4) Wt per rx Addendum: 09/02/18 at [address] Amended: Links added.
[2018-09-02 19:00] VITALS: BP 142/89
[2018-09-02] MEDS ORDERED: cetirizine 10mg tablet PO PRN (19:15)
[2018-09-02] MEDS: lactobacillus rhamnosus 10,000 MMU CELLS/CAPSULE PO SCH (20:22)
[2018-09-02] MEDS: atorvastatin 20mg tablet PO SCH (20:24)
[2018-09-02] MEDS: lurasidone 20mg tablet PO SCH (20:24)
[2018-09-02] MEDS: insulin glargine (Lantus) pen - multi-dose SQ SCH ×2 (20:53→21:00)
[2018-09-02 23:00] VITALS: BP 143/85
[2018-09-03] MEDS: LORazepam 1 MG tablet PO PRN ×3 (01:24→11:09)
[2018-09-03 03:00] VITALS: BP 149/89
[2018-09-03 05:47] LABS: BASOPHILS % (AUTO) 0.3 % (0-1); EOSINOPHILS # (AUTO) 0.2 X10'3 (0-0.9); EOSINOPHILS % (AUTO) 2.7 % (0-6); HEMATOCRIT 33.7 % (42.0-52.0); HEMOGLOBIN 12.1 g/dl (14.0-17.9); LYMPHOCYTES # (AUTO) 1.9 X10'3 (1.1-4.8); LYMPHOCYTES % (AUTO) 30.3 % (21-51); MEAN CORPUSCULAR VOLUME 91.7 FL (78-98); MEAN PLATELET VOLUME 7.4 FL (7.4-10.4); MONOCYTES # (AUTO) 0.3 X10'3 (0-0.9); MONOCYTES % (AUTO) 5.6 % (2-12); NEUTROPHILS # (AUTO) 3.8 X10'3 (1.8-7.7); NEUTROPHILS % (AUTO) 61.1 % (42-75); PLATELET COUNT 59 X10'3 (140-440); RED BLOOD COUNT 3.68 X10'6 (4.70-6.10); RED CELL DISTRIBUTION WIDTH 14.8 % (11.5-14.5); WHITE BLOOD COUNT 6.2 X10'3 (4.5-11.0)
[2018-09-03] MEDS: oxyCODONE/APAP 10/325mg tablet PO PRN ×2 (05:48→12:49)
[2018-09-03 06:08] LABS: ANION GAP 10 (8-16); BLOOD UREA NITROGEN 8 MG/DL (7-18); BUN/CREATININE RATIO 8.1 (5.4-32.0); CALCIUM 7.9 MG/DL (8.5-10.1); CHLORIDE 98 MMOL/L (99-107); CREATININE 0.99 MG/DL (0.60-1.10); GLUCOSE 187 MG/DL (70-104); POTASSIUM 3.7 MMOL/L (3.5-5.1); SODIUM 133 MMOL/L (135-145); TOTAL CARBON DIOXIDE 24.6 MMOL/L (24-32); eGFR 80 ML/MIN
[2018-09-03 07:00] VITALS: BP 143/93
[2018-09-03] MEDS: CefTRIAXone 2gm/D5W 50ml 50 ML IV SCH (07:46)
[2018-09-03] MEDS: folic acid 1mg tablet PO SCH ×2 (07:47→11:08)
[2018-09-03] MEDS: losartan 25mg tablet PO SCH (07:47)
[2018-09-03] MEDS: pantoprazole 40mg Tablet.DR PO SCH (07:48)
[2018-09-03] MEDS: multivitamins, therapeutics tablet PO SCH (07:48)
[2018-09-03] MEDS: propranolol 10mg tablet PO SCH (07:48)
[2018-09-03] MEDS: amLODIPine 5mg tablet PO SCH (07:49)
[2018-09-03] MEDS: thiamine 100mg tablet PO SCH (07:49)
[2018-09-03] MEDS: linagliptin 5mg tablet PO SCH (07:49)
[2018-09-03] MEDS: lactobacillus rhamnosus 10,000 MMU CELLS/CAPSULE PO SCH (07:50)
[2018-09-03] MEDS: pregabalin 25mg capsule PO SCH (07:50)
[2018-09-03] MEDS: nicotine 21mg patch - 24 hr TD SCH (07:51)
[2018-09-03] MEDS: enoxaparin 40mg/0.4ml syringe SUBCUT SCH (08:00)
[2018-09-03] MEDS: ipratropium/albuterol 3ml nebule IH SCH ×2 (08:15→11:00)
[2018-09-03] MEDS: BUDESONIDE 0.25 MG/2 ML AMPUL.NEB IH SCH (08:15)
[2018-09-03] MEDS: insulin Lispro (HumaLOG) vial - multi-dose SQ SCH (09:53)
[2018-09-03 11:00] VITALS: BP 139/97
--- NOTE | 2018-09-03 13:45 | NUR ---
PAGER ID: [phone] MESSAGE: [id number] MICHAEL IS THINKING OF LEAVING AMA. WANTS TO SEE YOU Addendum: 09/03/18 at 1346 by Michelle Bland RN Amended: Links added.
[2018-09-03] MEDS ORDERED: VANCOMYCIN LEVEL IV ONE (14:30)
--- NOTE | 2018-09-03 15:43 | NUR ---
Patient Discharged. Patient discharged home via private vehicle accompanied by friend. IV catheter removed prior to discharge, catheter intact. Tele leads removed from patient prior to discharge. Tele box returned to telemetry technician. Discharge instructions discussed with patient via RN prior to discharge. Medications to be continued discussed with patient via RN. All belongings sent home with patient. All questions and concerns addressed with patient prior to discharge. Patient escorted out of hospital in wheelchair accompanied by RN.
== END 2018-09-03 15:43 | disposition home health service (06) | DRG 896 ==
LOC: ER 18:38 → EDBEDREQ 09-01 13:37 → ED HOLD 09-01 14:59 → PCU 3S 09-01 15:29 → CMPBEDREQ 09-01 20:00
PROVIDERS: ADMIT Hospitalist; ATTEND Hospitalist
DX: F10.229 Alcohol dependence with intoxication, unspecified (principal); N17.0 Acute kidney failure with tubular necrosis; E87.2 Acidosis; F10.239 Alcohol dependence with withdrawal, unspecified; E86.0 Dehydration; F17.210 Nicotine dependence, cigarettes, uncomplicated; F43.10 Post-traumatic stress disorder, unspecified; E11.42 Type 2 diabetes mellitus with diabetic polyneuropathy; E78.00 Pure hypercholesterolemia, unspecified; E78.5 Hyperlipidemia, unspecified; F31.9 Bipolar disorder, unspecified; G47.33 Obstructive sleep apnea (adult) (pediatric); G89.4 Chronic pain syndrome; I10 Essential (primary) hypertension; J44.9 Chronic obstructive pulmonary disease, unspecified; K21.9 Gastro-esophageal reflux disease without esophagitis; F41.9 Anxiety disorder, unspecified; G43.909 Migraine, unspecified, not intractable, without status migrainosus; M54.9 Dorsalgia, unspecified; Z90.49 Acquired absence of other specified parts of digestive tract; Z79.4 Long term (current) use of insulin; Z79.84 Long term (current) use of oral hypoglycemic drugs; Z79.899 Other long term (current) drug therapy; Z91.013 Allergy to seafood; Z87.442 Personal history of urinary calculi; Z82.49 Family history of ischemic heart disease and other diseases of the circulatory system; Z83.3 Family history of diabetes mellitus
CPT/HCPCS: 36415; 36600; 71045; 80048; 80053; 80202; 80305; 80320; 81001; 82009; 82272; 82803; 82948; 83036; 83605; 83690; 85018; 85025; 87040; 87070; 87077; 87186; 93005; 94640; 94760; 96361; 96374; 96375; 99285; G0378; J0696; J1650; J1815; J2060; J2405; J3370; J7030